=== PATIENT | female | born 1975 | race Caucasian/White ===

== ENCOUNTER 2019-12-18 21:45 | Emergency (ER) | payer BC, SELFPAY ==
--- OUTSIDE RECORDS SUMMARY | 2019-12-18 21:47 | XMS REPORT ---
:1975 [facility] Address [address] [place] [address] Care Team Providers Name Role Phone Unavailable Unavailable Unavailable Problems This patient has no known problems. Allergies, Adverse Reactions, Alerts This patient has no known allergies or adverse reactions. Medications This patient has no known medications. Results Test Description Test Time Test Comments Text Results Atomic Results Result Comments DIAG MAMM BILATERAL ARIN 2019-11-16 13:26:07 - DIAG MAMM BILATERAL ARIN CAD CAD DIGITAL DIGITALBILATERAL DIGITAL DIAGNOSTIC MAMMOGRAM 3D/2D WITH CAD: 11/16/2019CLINICAL: Palpable mass, right breast. Digital breast tomosynthesis was performed in addition to routine CC and MLO views. Current mammographic images were evaluated by either a [employer] M-Vu or a [employer] Image[employer] CAD (computer aided detection system). No prior exams were available for comparison. The tissue of both breasts has scattered fibroglandular background echotexture. A palpable marker is placed at the site of clinical area of concern, in the right upper outer quadrant, and no suspicious mammographic abnormality is identified. Multiple bilateral oval, circumscribed, low-density benign-appearing masses. No suspicious mass, architectural distortion, malignant type calcification, or lymph node abnormality detected. INCOMPLETE: ADDITIONAL IMAGING EVALUATION NEEDEDMammographic evidence of malignancy. Targeted right and bilateral survey ultrasound to follow.- BREAST ULTRASOUND BILATERALULTRASOUND OF BOTH BREASTS: 11/16/2019No prior exams were available for comparison. Color flow and real-time ultrasound of both breasts were performed. Greenfield scale images of the real-time examination were reviewed. The breast tissue has scattered fibroglandular background echotexture. Targeted right breast ultrasound, at the site of palpable area of concern at 12 o'clock, 8 cm from the nipple, demonstrates no suspicious sonographic abnormality. The rest of the bilateral survey ultrasound demonstrates scattered simple cysts correlating with the mammographic masses but no suspicious sonographic abnormality. No axillary lymphadenopathy was seen.IMPRESSION: BENIGN There is no sonographic evidence of malignancy. Resume annual screening mammography in one year. Clinical follow up is also recommended, and further management of palpable abnormalities should be based on clinical examination.Russel Hallman M.D. ss/:11/16/2019 13:26:07 Entry: - 11/24/2019 10:08:39Imaging Technologist: Carla JONES, [facility]-FWletter sent: BIRADS 1-2 Combo FU Letter Mammogram BI-RADS: 0 Incomplete: Additional Imaging Evaluation Needed Ultrasound BI-RADS: 2 Benign BREAST ULTRASOUND 2019-11-16 13:26:07 - DIAG MAMM BILATERAL ARIN CAD BILATERAL DIGITALBILATERAL DIGITAL DIAGNOSTIC MAMMOGRAM 3D/2D WITH CAD: 11/16/2019CLINICAL: Palpable mass, right breast. Digital breast tomosynthesis was performed in addition to routine CC and MLO views. Current mammographic images were evaluated by either a [employer] M-Vu or a [employer] CAD (computer aided detection system). No prior exams were available for comparison. The tissue of both breasts has scattered fibroglandular background echotexture. A palpable marker is placed at the site of clinical area of concern, in the right upper outer quadrant, and no suspicious mammographic abnormality is identified. Multiple bilateral oval, circumscribed, low-density benign-appearing masses. No suspicious mass, architectural distortion, malignant type calcification, or lymph node abnormality detected. INCOMPLETE: ADDITIONAL IMAGING EVALUATION NEEDEDMammographic evidence of malignancy. Targeted right and bilateral survey ultrasound to follow.- BREAST ULTRASOUND BILATERALULTRASOUND OF BOTH BREASTS: 11/16/2019No prior exams were available for comparison. Color flow and real-time ultrasound of both breasts were performed. Greenfield scale images of the real-time examination were reviewed. The breast tissue has scattered fibroglandular background echotexture. Targeted right breast ultrasound, at the site of palpable area of concern at 12 o'clock, 8 cm from the nipple, demonstrates no suspicious sonographic abnormality. The rest of the bilateral survey ultrasound demonstrates scattered simple cysts correlating with the mammographic masses but no suspicious sonographic abnormality. No axillary lymphadenopathy was seen.IMPRESSION: BENIGN There is no sonographic evidence of malignancy. Resume annual screening mammography in one year. Clinical follow up is also recommended, and further management of palpable abnormalities should be based on clinical examination.Russel Hallman M.D. ss/:11/16/2019 13:26:07 Entry: july - 11/24/2019 10:08:39Imaging Technologist: Carla JONES, [facility]-FWletter sent: BIRADS 1-2 Combo FU Letter Mammogram BI-RADS: 0 Incomplete: Additional Imaging Evaluation Needed Ultrasound BI-RADS: 2 Benign DIAG MAMM BILATERAL ARIN 2019-11-16 13:26:07 - DIAG MAMM BILATERAL ARIN CAD CAD DIGITAL DIGITALBILATERAL DIGITAL DIAGNOSTIC MAMMOGRAM 3D/2D WITH CAD: 11/16/2019CLINICAL: Palpable mass, right breast. Digital breast tomosynthesis was performed in addition to routine CC and MLO views. Current mammographic images were evaluated by either a [employer] M-Vu or a [employer] Image[employer] CAD (computer aided detection system). No prior exams were available for comparison. The tissue of both breasts has scattered fibroglandular background echotexture. A palpable marker is placed at the site of clinical area of concern, in the right upper outer quadrant, and no suspicious mammographic abnormality is identified. Multiple bilateral oval, circumscribed, low-density benign-appearing masses. No suspicious mass, architectural distortion, malignant type calcification, or lymph node abnormality detected. INCOMPLETE: ADDITIONAL IMAGING EVALUATION NEEDEDMammographic evidence of malignancy. Targeted right and bilateral survey ultrasound to follow.- BREAST ULTRASOUND BILATERALULTRASOUND OF BOTH BREASTS: 11/16/2019No prior exams were available for comparison. Color flow and real-time ultrasound of both breasts were performed. Greenfield scale images of the real-time examination were reviewed. The breast tissue has scattered fibroglandular background echotexture. Targeted right breast ultrasound, at the site of palpable area of concern at 12 o'clock, 8 cm from the nipple, demonstrates no suspicious sonographic abnormality. The rest of the bilateral survey ultrasound demonstrates scattered simple cysts correlating with the mammographic masses but no suspicious sonographic abnormality. No axillary lymphadenopathy was seen.IMPRESSION: BENIGN There is no sonographic evidence of malignancy. Resume annual screening mammography in one year. Clinical follow up is also recommended, and further management of palpable abnormalities should be based on clinical examination.Russel Hallman M.D. ss/:11/16/2019 13:26:07 Entry: lc - 11/24/2019 10:08:39Imaging Technologist: Carla JONES, [facility]-FWletter sent: BIRADS 1-2 Combo FU Letter Mammogram BI-RADS: 0 Incomplete: Additional Imaging Evaluation Needed Ultrasound BI-RADS: 2 Benign
[2019-12-18] MEDS ORDERED: ALBUTEROL 2.5 MG/3 ML NEB SOL ONE ×2 (22:28→23:49)
[2019-12-18] MEDS ORDERED: IPRATROPIUM BROM 0.5MG/2.5ML ONE (22:28)
[2019-12-18] MEDS ORDERED: METHYLPREDNISOLONE 125 MG INJ ONE (22:48)
[2019-12-18] MEDS ORDERED: Levofloxacin500mg IV 500 MG/100 ML BAG IV ONE (22:49)
[2019-12-18] MEDS ORDERED: NA CHLORIDE 0.9% 1,000 ML ONE (22:49)
[2019-12-18] MEDS ORDERED: predniSONE 20 MG TAB ONE (22:49)
[2019-12-18 23:12] LABS: Absolute Lymphocytes (CBC) 2.9 K/uL (0.7-4.9); Basophils % 1.1 % (0-1.3); Hematocrit 40.7 % (36.0-45.0); Lymphocytes % 41.1 % (15.3-44.8); MPV 11.3 fL (7.6-11.3); RBC Red Blood Cell Count 4.77 M/uL (3.86-4.86)
[2019-12-18 23:13] LABS: Protime INR 1.04
[2019-12-18 23:39] LABS: ALT/SGPT 81 U/L (12-78); AST/SGOT 56 U/L (15-37); Albumin 3.8 g/dL (3.4-5.0); Alkaline Phosphatase 93 U/L (45-117); BUN Blood Urea Nitrogen 7 mg/dL (7-18); Bicarbonate 31 mmol/L (21-32); Bilirubin Direct 0.1 mg/dL (0-0.2); Bilirubin Total 0.3 mg/dL (0.2-1.0); Glucose Level 158 mg/dL (74-106); NT PRO-BNP 63 pg/mL (<125); Potassium 2.8 mmol/L (3.5-5.1); Protein, Total 7.8 g/dL (6.4-8.2); Sodium Level 140 mmol/L (136-145); Troponin (Emerg Dept Use Only) < 0.02 ng/mL (0.0-0.045)
[2019-12-18] MEDS ORDERED: POTASSIUM 25 MEQ EFFERV TAB ONE (23:49)
--- NOTE | 2019-12-19 00:02 | ER ---
Nurse's Notes [facility] Name: Jennie Muhammad Age: 44 yrs Sex: Female : 1975 Arrival Date: 12/18/2019 Time: 21:47 Bed 20 Private MD: Diagnosis: Asthma;Dyspnea;Hypokalemia Presentation: 12/17 22:03 Chief complaint: Patient states: with history of COPD, have been using inhaler rv frequently because of SOB. started getting worse yesterday. denies any fever, nausea , or other symptoms. Coronavirus screen: Patient denies fever greater than 100.4F, cough, shortness of breath, or difficulty breathing. Proceed with normal triage process. Ebola Screen: No symptoms or risks identified at this time. Initial Sepsis Screen: Does the patient meet any 2 criteria?. Initial Sepsis Screen: Does the patient have a suspected source of infection? No. Patient's initial sepsis screen is negative. Risk Assessment: Do you want to hurt yourself or someone else? Patient reports no desire to harm self or others. 22:03 Method Of Arrival: Ambulatory rv 22:03 Acuity: HOOD 3 rv 22:11 Onset of symptoms was December 17, 2019 at 08:00. 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 - Social history:: Smoking status: Patient/guardian denies using tobacco, the patient reports quitting approximately 10 years ago. - Family history:: not pertinent. Screenin:10 Abuse screen: Denies threats or abuse. Denies injuries from another. Nutritional rv screening: No deficits noted. Tuberculosis screening: No symptoms or risk factors identified. Fall Risk None identified. Assessment: 22:09 General: Appears uncomfortable, Behavior is calm, cooperative. Pain: Denies pain. rv Neuro: Level of Consciousness is awake, alert, obeys commands, Oriented to person, place, time, situation. Cardiovascular: Patient's skin is warm and dry. Rhythm is regular. Respiratory: Respiratory effort is labored, Respiratory pattern is tachypnea Breath sounds are clear bilaterally. Derm: Skin is intact. 23:58 Reassessment: Patient appears in no apparent distress at this time. Patient and/or rv family updated on plan of care and expected duration. Pain level reassessed. Patient is alert, oriented x 3, equal unlabored respirations, skin warm/dry/pink. feeling better after the treatment. denies any pain at the moment. Respiratory: Respiratory effort is even, unlabored, Respiratory pattern is regular, Breath sounds are clear bilaterally. Vital Signs: 22:03 BP 139 / 82; Pulse 88; Resp 25; Temp 98.2; Pulse Ox 99% on R/A; Weight 113.4 kg; Height rv 5 ft. 10 in. (177.80 cm); Pain 0/10; 22:30 BP 124 / 91; Pulse 79; Resp 19; Pulse Ox 96% on Nebulizer Mask; rv 23:00 BP 118 / 73; Pulse 85; Resp 18; Pulse Ox 96% on Nebulizer Mask; rv 23:30 BP 113 / 70; Pulse 83; Resp 19; Pulse Ox 96% on R/A; rv 12/18 00:15 BP 135 / 73; Pulse 90; Resp 17; Pulse Ox 99% on Nebulizer Mask; rv 12/17 22:03 Body Mass Index 35.87 (113.40 kg, 177.80 cm) rv ED Course: 12/17 21:47 Patient arrived in ED. cl3 21:49 Aditya Amaya, STUART is Primary Nurse. rv 22:05 Vasyl Strong MD is Attending Physician. gopal 22:07 Triage completed. rv 22:09 Arm band placed on Patient placed in the treatment room, on a stretcher, Patient rv notified of wait time. 22:10 Patient has correct armband on for positive identification. Bed in low position. Call rv light in reach. Side rails up X 1. Pulse ox on. NIBP on. 22:45 Inserted saline lock: 20 gauge in right antecubital area, using aseptic technique. rv Blood collected. by YAZMIN SCHULER. 22:45 First set of blood cultures drawn GANGA TECH. rv 23:00 Second set of blood cultures drawn GANAG TECH. rv 12/18 00:00 Shon Gutierrez MD is Referral Physician. gopal 00:10 XRAY Chest (1 view) In Process Unspecified. EDMS 00:35 No provider procedures requiring assistance completed. IV discontinued, intact, rv bleeding controlled, No redness/swelling at site. Pressure dressing applied. Administered Medications: 12/17 22:27 Drug: Albuterol - atroVENT (3:1) (2.5 mg - 0.5 mg) 3 ml Route: Nebulizer; rv 12/18 00:38 Follow up: Response: Marked relief of symptoms rv 12/17 22:45 Drug: NS 0.9% 1000 ml Route: IV; Rate: 1 bolus; Site: right antecubital; rv 23:51 Follow up: IV Status: Completed infusion; IV Intake: 1000ml rv 22:45 Drug: SOLU-Medrol 125 mg Route: IVP; Site: right antecubital; rv 12/18 00:39 Follow up: Response: No adverse reaction rv 12/17 23:00 Drug: levofloxacin 500 mg Volume: 100 ml; Route: IVPB; Infused Over: 60 mins; Site: rv right antecubital; 12/18 00:37 Follow up: IV Status: Completed infusion; IV Intake: 150ml rv 12/17 23:25 Drug: predniSONE 60 mg Route: PO; rv 12/18 00:38 Follow up: Response: No adverse reaction rv 12/17 23:50 Drug: Albuterol 2.5 mg Route: Inhalation; rv 12/18 00:33 Follow up: Response: Marked relief of symptoms rv 12/17 23:51 Drug: Potassium Effervescent Tablet 50 mEq Route: PO; rv 12/18 00:33 Follow up: Response: No adverse reaction rv 00:15 Drug: Albuterol 5 mg Route: Inhalation; rv 00:34 Follow up: Response: Marked relief of symptoms rv 00:25 Drug: Potassium Effervescent Tablet 25 mEq Route: PO; rv 00:34 Follow up: Response: Medication administered at discharge. rv Intake: 12/17 23:51 IV: 1000ml; Total: 1000ml. rv 12/18 00:37 IV: 150ml; Total: 1150ml. rv Outcome: 00:00 Discharge ordered by . gopal 00:36 Discharged to home ambulatory. rv 00:36 Condition: good 00:36 Discharge instructions given to patient, Instructed on discharge instructions, follow up and referral plans. medication usage, Demonstrated understanding of instructions, follow-up care, medications, Prescriptions given X 3. 00:36 Patient left the ED. rv Signatures: Dispatcher [employer] EDVasyl Villaseñor MD MD cha Vicente, Ronaldo, RN RN rv Christopher Lawson cl3 Corrections: (The following items were deleted from the chart) 12/17 23:28 22:45 levofloxacin 500 mg 100 ml IVPB in right antecubital over 60 mins 100 ml rv rv
--- NOTE | 2019-12-19 00:02 | EDPHYS ---
Physician Documentation [facility] Name: Jennie Muhammad Age: 44 yrs Sex: Female : 1975 Arrival Date: 12/18/2019 Time: 21:47 Bed 20 Private MD: ED Physician Vasyl Strong HPI: 12/17 22:19 This 44 yrs old Female presents to ER via Ambulatory with complaints of Chest gopal Tightness. 22:19 The patient has shortness of breath at rest, with light activity. Onset: The gopal symptoms/episode began/occurred 2 day(s) ago. Duration: The symptoms are continuous, and are steadily getting worse. The patient's shortness of breath is aggravated by exertion, light activity, is alleviated by rest, sitting up, application of supplemental oxygen. The patient or guardian reports cough, that is intermittent, difficulty breathing. Modifying factors: The symptoms are alleviated by remaining still, the symptoms are aggravated by activity, lying flat. Associated signs and symptoms: The patient has no apparent associated signs or symptoms. Severity of symptoms: At their worst the symptoms were mild moderate in the emergency department the symptoms are unchanged. 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 - Social history:: Smoking status: Patient/guardian denies using tobacco, the patient reports quitting approximately 10 years ago. - Family history:: not pertinent. ROS: 22:19 Constitutional: Negative for fever, chills, and weight loss, Eyes: Negative for injury, gopal pain, redness, and discharge, ENT: Negative for injury, pain, and discharge, Neck: Negative for injury, pain, and swelling, Abdomen/GI: Negative for abdominal pain, nausea, vomiting, diarrhea, and constipation, Back: Negative for injury and pain, : Negative for injury, bleeding, discharge, and swelling, MS/Extremity: Negative for injury and deformity, Skin: Negative for injury, rash, and discoloration, Neuro: Negative for headache, weakness, numbness, tingling, and seizure, Psych: Negative for depression, anxiety, suicide ideation, homicidal ideation, and hallucinations, Allergy/Immunology: Negative for hives, rash, and allergies, Endocrine: Negative for neck swelling, polydipsia, polyuria, polyphagia, and marked weight changes, Hematologic/Lymphatic: Negative for swollen nodes, abnormal bleeding, and unusual bruising. 22:19 Cardiovascular: Positive for chest pain. 22:19 Respiratory: Positive for shortness of breath, at rest. Exam: 22:19 Constitutional: This is a well developed, well nourished patient who is awake, alert, gopal and in no acute distress. Head/Face: Normocephalic, atraumatic. Eyes: Pupils equal round and reactive to light, extra-ocular motions intact. Lids and lashes normal. Conjunctiva and sclera are non-icteric and not injected. Cornea within normal limits. Periorbital areas with no swelling, redness, or edema. ENT: Nares patent. No nasal discharge, no septal abnormalities noted. Tympanic membranes are normal and external auditory canals are clear. Oropharynx with no redness, swelling, or masses, exudates, or evidence of obstruction, uvula midline. Mucous membranes moist. Neck: Trachea midline, no thyromegaly or masses palpated, and no cervical lymphadenopathy. Supple, full range of motion without nuchal rigidity, or vertebral point tenderness. No Meningismus. Chest/axilla: Normal chest wall appearance and motion. Nontender with no deformity. No lesions are appreciated. Cardiovascular: Regular rate and rhythm with a normal S1 and S2. No gallops, murmurs, or rubs. Normal PMI, no JVD. No pulse deficits. Abdomen/GI: Soft, non-tender, with normal bowel sounds. No distension or tympany. No guarding or rebound. No evidence of tenderness throughout. Back: No spinal tenderness. No costovertebral tenderness. Full range of motion. Skin: Warm, dry with normal turgor. Normal color with no rashes, no lesions, and no evidence of cellulitis. MS/ Extremity: Pulses equal, no cyanosis. Neurovascular intact. Full, normal range of motion. Neuro: Awake and alert, GCS 15, oriented to person, place, time, and situation. Cranial nerves II-XII grossly intact. Motor strength 5/5 in all extremities. Sensory grossly intact. Cerebellar exam normal. Normal gait. Psych: Awake, alert, with orientation to person, place and time. Behavior, mood, and affect are within normal limits. 22:19 Respiratory: mild respiratory distress is noted, Respirations: labored breathing, that is mild, Breath sounds: decreased breath sounds, that are moderate, rhonchi, are not appreciated, wheezing: is not appreciated. Vital Signs: 22:03 BP 139 / 82; Pulse 88; Resp 25; Temp 98.2; Pulse Ox 99% on R/A; Weight 113.4 kg; Height rv 5 ft. 10 in. (177.80 cm); Pain 0/10; 22:30 BP 124 / 91; Pulse 79; Resp 19; Pulse Ox 96% on Nebulizer Mask; rv 23:00 BP 118 / 73; Pulse 85; Resp 18; Pulse Ox 96% on Nebulizer Mask; rv 23:30 BP 113 / 70; Pulse 83; Resp 19; Pulse Ox 96% on R/A; rv 12/18 00:15 BP 135 / 73; Pulse 90; Resp 17; Pulse Ox 99% on Nebulizer Mask; rv 12/17 22:03 Body Mass Index 35.87 (113.40 kg, 177.80 cm) rv MDM: 12/17 22:05 Patient medically screened. [facility] 22:26 Data reviewed: vital signs, nurses notes, lab test result(s), EKG, radiologic studies, gopal plain films. 12/17 23:04 Order name: Basic Metabolic Panel; Complete Time: 23:42 [facility] 12/17 23:04 Order name: Liver (Hepatic) Function; Complete Time: 23:42 [facility] 12/17 23:04 Order name: Troponin (Emerg Dept Use Only); Complete Time: 23:42 [facility] 12/17 23:04 Order name: NT PRO-BNP; Complete Time: 23:42 [facility] 12/17 23:04 Order name: Magnesium; Complete Time: 23:42 [facility] 12/17 22:17 Order name: XRAY Chest (1 view) [facility] 12/17 22:17 Order name: EKG; Complete Time: 23:09 [facility] 12/17 23:06 Order name: CBC with Automated Diff; Complete Time: 23:31 [facility] 12/17 23:06 Order name: Protime (+INR); Complete Time: 23:31 [facility] 12/17 23:06 Order name: Influenza Screen (A [facility] 12/17 23:06 Order name: Blood Culture [facility] 12/17 23:06 Order name: Blood Culture [facility] 12/17 22:17 Order name: Cardiac monitoring; Complete Time: 23:26 [facility] 12/17 22:17 Order name: EKG - Nurse/Tech; Complete Time: 23:26 [facility] 12/17 22:17 Order name: IV Saline Lock; Complete Time: 23: [facility] 12/17 22:17 Order name: Labs collected and sent; Complete Time: : [facility] 12/17 22:17 Order name: O2 Per Protocol; Complete Time: 23: [facility] 12/17 22:17 Order name: O2 Sat Monitoring; Complete Time: : [facility] 12/17 23:42 Order name: PO challenge: juice; Complete Time: 23:51 [facility] Administered Medications: 22:27 Drug: Albuterol - atroVENT (3:1) (2.5 mg - 0.5 mg) 3 ml Route: Nebulizer; rv 12/18 00:38 Follow up: Response: Marked relief of symptoms rv 12/17 22:45 Drug: NS 0.9% 1000 ml Route: IV; Rate: 1 bolus; Site: right antecubital; rv 23:51 Follow up: IV Status: Completed infusion; IV Intake: 1000ml rv 22:45 Drug: SOLU-Medrol 125 mg Route: IVP; Site: right antecubital; rv 12/18 00:39 Follow up: Response: No adverse reaction rv 12/17 23:00 Drug: levofloxacin 500 mg Volume: 100 ml; Route: IVPB; Infused Over: 60 mins; Site: rv right antecubital; 12/18 00:37 Follow up: IV Status: Completed infusion; IV Intake: 150ml rv 12/17 23:25 Drug: predniSONE 60 mg Route: PO; rv 12/18 00:38 Follow up: Response: No adverse reaction rv 12/17 23:50 Drug: Albuterol 2.5 mg Route: Inhalation; rv 12/18 00:33 Follow up: Response: Marked relief of symptoms rv 12/17 23:51 Drug: Potassium Effervescent Tablet 50 mEq Route: PO; rv 12/18 00:33 Follow up: Response: No adverse reaction rv 00:15 Drug: Albuterol 5 mg Route: Inhalation; rv 00:34 Follow up: Response: Marked relief of symptoms rv 00:25 Drug: Potassium Effervescent Tablet 25 mEq Route: PO; rv 00:34 Follow up: Response: Medication administered at discharge. rv Disposition: 12/19/19 00:00 Discharged to Home. Impression: Asthma, Dyspnea, Hypokalemia. - Condition is Stable. - Discharge Instructions: Asthma, Adult, Potassium Content of Foods, Shortness of Breath, Shortness of Breath, [id number], Asthma, Adult, [id number], Hypokalemia. - Prescriptions for Levaquin 500 mg Oral Tablet - take 1 tablet by ORAL route once daily for 7 days; 7 tablet. Albuterol Sulfate 2.5 mg /3 mL (0.083 %) Inhalation Solution for Nebulization - inhale 1 unit by NEBULIZATION route every 8 hours As needed; 1 box. Prednisone 20 mg Oral Tablet - take 2 tablet by ORAL route once daily for 5 days; 10 tablet. Albuterol Sulfate 90 mcg/actuation - inhale 1-2 puff by INHALATION route every 4-6 hours; 1 Inhaler. - Medication Reconciliation Form, Thank You Letter, Antibiotic Education, Prescription Opioid Use form. - Follow up: Private Physician; When: 2 - 3 days; Reason: Recheck today's complaints, Continuance of care, Re-evaluation by your physician. Follow up: Shon Gutierrez; When: 2 - 3 days; Reason: Recheck today's complaints, Continuance of care, Re-evaluation by your physician. - Problem is new. - Symptoms have improved. Signatures: Dispatcher [employer] Vasyl Doan MD MD cha Vicente, Ronaldo, RN RN rv Corrections: (The following items were deleted from the chart) 12/17 23:41 23:09 BASIC METABOLIC PANEL+C.LAB.BRZ ordered. EDMS EDMS 23:41 23:09 CBC+H.LAB.BRZ ordered. EDMS EDMS 23:41 23:09 HEPATIC FUNCTION+C.LAB.BRZ ordered. EDMS EDMS 23:41 23:09 MAGNESIUM+C.LAB.BRZ ordered. EDMS EDMS 23:41 23:09 PROBNP+C.LAB.BRZ ordered. EDMS EDMS 23:41 23:09 PROTIME (+INR)+COAG.LAB.BRZ ordered. EDMS EDMS : 23:09 TROPONIN (EMERG DEPT USE ONLY)+C.LAB.BRZ ordered. [facility] :41 23:09 BLOOD CULTURE*+BA.LAB.BRZ ordered. [facility] :41 23:09 Influenza Screen (A \T\ B)+BA.LAB.BRZ ordered. [facility] 12/18 00:36 00:00 12/19/2019 00:00 Discharged to Home. Impression: Asthma; Dyspnea; Hypokalemia. rv Condition is Stable. Discharge Instructions: Asthma, Adult, Shortness of Breath, Shortness of Breath, [id number], Asthma, Adult, [id number], Potassium Content of Foods, Hypokalemia. Prescriptions for Levaquin 500 mg Oral Tablet - take 1 tablet by ORAL route once daily for 7 days; 7 tablet, Albuterol Sulfate 2.5 mg /3 mL (0.083 %) Inhalation Solution for Nebulization - inhale 1 unit by NEBULIZATION route every 8 hours As needed; 1 box, Prednisone 20 mg Oral Tablet - take 2 tablet by ORAL route once daily for 5 days; 10 tablet, Albuterol Sulfate 90 mcg/actuation - inhale 1-2 puff by INHALATION route every 4-6 hours; 1 Inhaler. and Forms are Medication Reconciliation Form, Thank You Letter, Antibiotic Education, Prescription Opioid Use. Follow up: Private Physician; When: 2 - 3 days; Reason: Recheck today's complaints, Continuance of care, Re-evaluation by your physician. Follow up: Shon Gutierrez; When: 2 - 3 days; Reason: Recheck today's complaints, Continuance of care, Re-evaluation by your physician. Problem is new. Symptoms have improved. gopal
[2019-12-19 00:52] VITALS: TEMP 98.2
[2019-12-19 00:57] VITALS: BP 135/73; O2SAT 99
--- NOTE | 2019-12-19 05:55 | RAD REPORT ---
EXAM DESCRIPTION: [place] Single View12/19/2019 12:04 am CLINICAL HISTORY: sob COMPARISON: none FINDINGS: The lungs appear clear of acute infiltrate. The heart is normal size IMPRESSION: No acute abnormalities displayed
--- NOTE | 2019-12-19 10:57 | EKG ---
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
== END 2019-12-19 00:36 | disposition home or self-care (01) ==
LOC: ER 21:45
DX: J45.909 Unspecified asthma, uncomplicated (principal); E87.6 Hypokalemia; Z88.1 Allergy status to other antibiotic agents; Z88.8 Allergy status to other drugs, medicaments and biological substances
CPT/HCPCS: 36415; 71045; 80048; 80076; 83735; 83880; 84484; 85025; 85610; 87040; 87804; 93005; 94640; 96365; 96366; 96375; 99284; J2930; J7030; J7512

== ENCOUNTER 2023-05-21 14:54 | Emergency (ER) | payer OTHER ==
--- OUTSIDE RECORDS SUMMARY | 2023-05-21 14:58 | XMS REPORT | Continuity of Care Document ---
:1975 Author Organization [facility] t Address [address] [facility] [address] [place] [address] Care Team Providers Name Role Phone JASMIN HI Primary Care Physician Unavailable Gustavo CARDENAS, Twyla Morejon Attending Clinician TWYLA CHEN Attending Clinician Unavailable Payers Payer Name Policy Type Policy Number Effective Date Expiration Date S ource Problems Condition Condition Condition Status Onset Resolution Last Treating Co mments Source Name Details Category Date Date Treatment Clinician Date Unspecifie Unspecifi Problem Active 2017-06-25 Memoria d sleep ed sleep 02:00:06 l disturbanc disturbanc He rmmaxi e e Active Problem 06/25/2017 [facility] Allergic Allergic Problem Active 2017-06-25 Memoria rhinitis, rhinitis, 02:00:06 l cause cause Naga unspecifie unspecifie d d Active Problem 06/25/2017 [facility] Asthma, Asthma, Problem Active 2017-06-25 Me moria unspecifie unspecifie 02:00:06 l d, d, [place] unspecifie unspecifie d status d status Active Problem 06/25/2017 [facility] Edema Edema Problem Active 2017-06-25 Memor ia Active 02:00:06 l Problem Naga 06/25/2017 [facility] Obstructiv Obstructi Problem Active 2022-02-17 Memoria e sleep ve sleep 02:01:04 l apnea apnea [place] (adult) (adult) (pediatric (pediatric ) ) Active Problem 02/17/2022 [facility] Shortness Shortness Problem Active 2017-06-25 Memoria of breath of breath 02:00:06 l Active [place] Problem 06/25/2017 [facility] Chest Chest Problem Active 2022-02-17 Finesse chirstian pain, pain, 02:01:04 l unspecifie unspecifie He doretha chiang d Active Problem 02/17/2022 [facility] Palpitatio Palpitati Problem Active 2017-06-25 Memoria ns ons Active 02:00:06 l Problem [place] 06/25/2017 [facility] Asthma, Asthma, Problem Active 2017-06-25 Me moria unspecifie unspecifie 02:00:06 l d, with d, with Naga (acute) (acute) exacerbati exacerbati on on Active Problem 06/25/2017 [facility] Diabetes Diabetes Problem Active 2017-06-25 Memoria mellitus mellitus 02:00:06 l without without [place] mention of mention of complicati complicati on, type on, type II or II or unspecifie unspecifie d type, d type, not stated not stated as as uncontroll uncontroll ed ed Active Problem 06/25/2017 [facility] Raynaud's Raynaud's Problem Active 2017-06-25 Memoria syndrome syndrome 02:00:06 l Active Naga Problem 06/25/2017 [facility] Type 2 Type 2 Problem Active 2022-02-17 Finesse christian diabetes diabetes 02:01:04 l mellitus mellitus Waqas n without without complicati complicati ons ons Active Problem 02/17/2022 [facility] Other Other Problem Active 2022-02-17 Memor ia specified specified 02:01:04 l diabetes diabetes Waqas n mellitus mellitus with other with other specified specified complicati complicati on on Active Problem 02/17/2022 [facility] Gastro-eso Gastro-es Problem Active 2022-02-17 Memoria phageal ophageal 02:01:04 l reflux reflux [place] disease disease without without esophagiti esophagiti s s Active Problem 02/17/2022 [facility] Unspecifie Unspecifi Problem Active 2022-02-17 Memoria d asthma, ed asthma, 02:01:04 l uncomplica uncomplica He doretha bermudez Active Problem 02/17/2022 [facility] Unspecifie Unspecifi Problem Active 2022-02-17 Memoria d asthma ed asthma 02:01:04 l with with Naga (acute) (acute) exacerbati exacerbati on on Active Problem 02/17/2022 [facility] Gastropare Gastropar Problem Active 2017-06-25 Memoria sis esis 02:00:06 l Active [place] Problem 06/25/2017 [facility] Edema, Edema, Problem Active 2022-02-17 Finesse christian unspecifie unspecifie 02:01:04 l d d Active [place] Problem 02/17/2022 [facility] Esophageal Esophagea Problem Active 2017-06-25 Memoria reflux l reflux 02:00:06 l Active [place] Problem 06/25/2017 [facility] Sleep Sleep Problem Active 2022-02-17 Memor ia disorder, disorder, 02:01:04 l unspecifie unspecifie Edwin rmmaxi d d Active Problem 02/17/2022 [facility] Obesity, Obesity, Problem Active 2017-06-25 Memoria unspecifie unspecifie 02:00:06 l d d Active Naga Problem 06/25/2017 [facility] Chronic Chronic Problem Active 2022-02-17 Me moria obstructiv obstructiv 02:01:04 l e e Naga pulmonary pulmonary disease, disease, unspecifie unspecifie d d Active Problem 02/17/2022 [facility] Moderate Moderate Problem Active 2022-02-17 Memoria persistent persistent 02:01:04 l asthma, asthma, Naga uncomplica uncomplica lara bermudez Active Problem 02/17/2022 [facility] Cough, Cough, Problem Active 2022-02-17 Finesse chrisitan unspecifie unspecifie 02:01:04 l d d Active Naga Problem 02/17/2022 [facility] Restless Restless Problem Active 2022-02-17 Memoria legs legs 02:01:04 l syndrome syndrome Waqas n Active Problem 02/17/2022 [facility] Allergic Allergic Problem Active 2022-02-17 Memoria rhinitis, rhinitis, 02:01:04 l unspecifie unspecifie He doretha d d Active Problem 02/17/2022 [facility] Unspecifie Unspecifi Problem Active 2022-02-17 Memoria d ed 02:01:04 l diastolic diastolic Herm maxi (congestiv (congestiv e) heart e) heart failure failure Active Problem 02/17/2022 [facility] Allergies, Adverse Reactions, Alerts Allergy Allergy Status Severity Reaction(s) Onset Inactive Treating Comm ents Source Name Type Date Date Clinician Cefazoli Propensi Active Unknown - Uni vers n ty to See comments 5-30 ity of adverse 00:00: [place] reaction [facility] Omalizum Propensi Active Anaphylaxis U nivers ab ty to 5-30 ity of adverse 00:00: [place] reaction 00 [facility] Theophyl Propensi Active Rash Univer s line ty to 5-30 ity of Anhydrou adverse 00:00: [place] s reaction 00 [facility] s [facility] CEFAZOLI DRUG Active Unknown-Cmnt Un albina N INGREDI 5-30 ity of 00:00: [place] 00 [facility] OMALIZUM DRUG Active Anaphylaxis Uni vers AB INGREDI 5-30 ity of 00:00: [place] 00 [facility] THEOPHYL DRUG Active Rash Univers LINE INGREDI 5-30 ity of ANHYDROU 00:00: [place] S 00 Medical [facility] Social History Social Habit Start Date Stop Date Quantity Comments Source Gender identity [facility] Sexual orientation [facility] AlcoholScreenin2016-06-04 2016-06-04 Bella Nielson 00:00:00 00:00:00 Sex [birth year] [facility] 00:00:00 00:00:00 Medical Branch Smoking Status Start Date Stop Date Source Tobacco smoking consumption [facility] Branch Medications Ordered Filled Start Stop Current Ordering Indication Dosage Frequency Signature Comments Components Source Medication Medication Date Date Medication? Clinician (SIG) Name Name Lyrica Yes Kuldip 1 capsule Finesse christian 1-18 [place]es[place] l 03:00: Naga 50 Proventil Yes Kuldip inhale 2 Me moria HFA 1-18 [place] puffs by l 03:00: mouth [place]over 50 every 4 hours as needed for shortness of breath Novolin 0 Yes Kuldip as Memoria 70/30 1-18 [place] directed l 03:00: Naga 50 Trelegy 0 Yes Kuldip 1 puff Memori a Ellipta 1-14 [place]es[place] l 00:00: [place]aga 00 Ventolin 0 Yes Kuldip 1 puff as Me moria HFA 1-14 [place]es[place] needed l 00:00: Naga 00 Glimepiride 2019-09 Yes Kuldip 1 tablet Memoria 2-11 [place] with l 03:02: breakfast 12 or the first main meal of the day Albuterol 2019-09 Yes Kuldip 3 ml as Mem oria Sulfate 2-11 Kesavan needed l 03:02: 12 Rosuvastati 2019-09 Yes Kuldip 1 tablet Memoria n Calcium 2-11 Kesavan l 03:02: 12 Levaquin 2019-09 Yes Kuldip 1 tablet Mem oria 2-08 [place]es[place] l 00:00: Rosuvastati 2019-0 Yes Kuldip 1 tablet Memoria n Calcium 5-07 Kesavan l 02:02: Naga 40 Glimepiride 2019-0 Yes Kuldip 1 tablet Memoria 5-07 [place] with l 02:02: breakfast 40 or the first main meal of the day Albuterol-I Yes Kuldip 3 ml as M emoria pratropium 5-04 Kesavan needed l 00:00: Qvar Yes Kuldip as Memoria RediHaler 8-06 [place] directed l 00:00: Cefpodoxime 0 Yes Kuldip 1 tablet Memoria Proxetil 9-28 [place]es[place] l 00:00: Bevespi 2016-0 Yes Kuldip 2 puffs Memor ia Aerosphere 9-21 Kesavan l 00:00: [place] 00 Breo Yes Kuldip 1 puff Memoria Ellipta 9-18 Kesavan l 00:00: Vital Signs Vital Name Observation Time Observation Value Comments Source Systolic blood 2023-05-21 19:09:00 143 mm[Hg] Univer sity of pressure [facility] Diastolic blood 2023-05-21 19:09:00 94 mm[Hg] Unive rsity of pressure [facility] Heart rate 2023-05-21 19:09:00 87 /min Universi ty [facility] Body temperature 2023-05-21 19:09:00 36.61 Sol Univ ersity of [facility] Respiratory rate 2023-05-21 19:09:00 16 /[facility] Body height 2023-05-21 19:09:00 177.8 cm Universi ty [facility] Body weight 2023-05-21 19:09:[address] BMI 2023-05-21 19:09:00 35.87 kg/m2 [facility] Oxygen saturation in 2023-05-21 19:09:00 100 /min [facility] Arterial blood by [facility] Pulse oximetry Branch Weight 2013-12-03 16:00:00 Elver Nielson Temperature Oral (F) 2013-12-03 16:00:00 98.4 F [facility] Rate 2013-12-03 16:00:00 Elver Nielson Diastolic (mm Hg) 2013-12-03 16:00:00 [facility] samir Nielson Systolic (mm Hg) 2013-12-03 16:00:00 Finesse Nielson Procedures Procedure Date / Time Performed Performing Clinician [facility] e ASSIGNMENT OF BENEFITS 2023-05-21 19:19:32 Doctor Unassigned, No [facility] CONSENT/REFUSAL FOR 2023-05-21 19:02:00 Doctor Unassigned, No [facility] DIAGNOSIS AND [facility] Medical Branch TREATMENT Encounters Start End Encounter Admission Attending Care Care Encounter Source Date/Time Date/Time Type Type Clinicians Facility Department ID 2023-05-21 2023-05-21 Emergency Gustavo [facility] [id number] Univers 14:10:00 14:29:00 [id number] [id number] Medi olivia 084 Branch 2023-05-21 2023-05-21 Emergency X GUSTAVO NMREINA ERT [id number] Univers 14:10:00 14:29:00 TWYLA sepulveda [facility] 2022-02-15 2022-02-15 Outpatient Pulmonary Pulmonary [id number] eClinic 16:43:00 16:43:00 Crit Care [facility] & [facility] & [facility] 2021-12-22 2021-12-22 Outpatient Pulmonary Pulmonary [id number] eClinic 13:31:00 13:31:00 Crit Care Crit [facility] & [facility] & [facility] 2021-12-15 2021-12-15 Outpatient Pulmonary Pulmonary [id number] eClinic 17:11:00 17:11:00 Crit Care Crit Care & [facility]Works & [facility]y Mater PA [facility] PA 2021-10-06 2021-10-06 Outpatient Pulmonary Pulmonary [id number] eClinic 12:28:00 12:28:00 Crit Care Crit Care & [facility]Works & [facility]y [facility]ater PA [facility] 2020-09-02 2020-09-02 Outpatient Pulmonary Pulmonary [id number] eClinic 14:06:00 14:06:00 Crit Care Crit Care & [facility]Works & [facility]y Mater PA [facility] PA 2020-05-20 2020-05-20 Outpatient Pulmonary Pulmonary [id number] eClinic 11:39:00 11:39:00 Crit Care Crit [facility] & [facility] & [facility] PA [facility] PA 2020-02-25 2020-02-25 Outpatient Pulmonary Pulmonary [id number] eClinic 13:17:00 13:17:00 Crit Care Crit [facility] & [facility] & [facility] PA [facility] PA 2020-01-28 2020-01-28 Outpatient Pulmonary Pulmonary [id number] eClinic 16:59:00 16:59:00 Crit Care Crit [facility] & [facility]Works & [facility] PA 2020-01-25 2020-01-25 Outpatient Pulmonary Pulmonary [id number] eClinic 15:02:00 15:02:00 Crit Care Crit Care & [facility] & [facility] 2019-07-02 2019-07-02 Outpatient Pulmonary Pulmonary [id number] eClinic 13:52:00 13:52:00 Crit Care Crit Care & [facility]Works & [facility]y Mater PA [facility]ater PA 2019-06-06 2019-06-06 Outpatient Pulmonary Pulmonary [id number] eClinic 09:25:00 09:25:00 Crit Care Crit [facility] & [facility] & [facility] PA [facility]y [facility] PA 2019-01-29 2019-01-29 Outpatient Pulmonary Pulmonary [id number] eClinic 15:53:00 15:53:00 Crit Care Crit Care & [facility] & [facility]y [facility] PA [facility]y [facility]ater PA 2018-08-04 2018-08-04 Outpatient Pulmonary Pulmonary [id number] eClinic 15:22:00 15:22:00 Crit Care Crit Care & [facility]Works & [facility]y [facility] PA [facility]y [facility]ater PA 2018-05-01 2018-05-01 Outpatient Pulmonary Pulmonary [id number] eClinic 10:50:00 10:50:00 Crit Care Crit Care & [facility]Works & [facility]y Mater PA [facility]y Mater PA 2018-04-26 2018-04-26 Outpatient Pulmonary Pulmonary [id number] eClinic 09:58:00 09:58:00 Crit Care Crit Care & [facility] & [facility] PA [facility]y Mater PA 2017-10-19 2017-10-19 Outpatient Pulmonary Pulmonary [id number] eClinic 09:21:00 09:21:00 Crit Care Crit Care & [facility]Works & [facility]y [facility]ater PA [facility]y [facility]ater PA 2017-10-03 2017-10-03 Outpatient Pulmonary Pulmonary [id number] eClinic 16:53:00 16:53:00 Crit Care Crit Care & [facility]Works & Hosiery Mater PA [facility]iery Mater PA 2017-08-02 2017-08-02 Outpatient Pulmonary Pulmonary [id number] eClinic 09:48:00 09:48:00 Crit Care Crit Care & [facility]Works & [facility]y Mater PA [facility]y Mater PA 2017-06-23 2017-06-23 Outpatient Pulmonary Pulmonary [id number] eClinic 10:24:00 10:24:00 Crit Care Crit Care & [facility]Works & [facility]y Mater PA Hosiery Mater PA 2017-06-16 2017-06-16 Outpatient Pulmonary Pulmonary [id number] eClinic 14:17:00 14:17:00 Crit Care Crit Care & [facility]Works & [facility]y Mater PA [facility]iery Mater PA 2017-06-13 2017-06-13 Outpatient Pulmonary Pulmonary [id number] eClinic 13:37:00 13:37:00 Crit Care Crit Care & [facility]Works & [facility]y Mater PA [facility]iery Mater PA 2017-05-17 2017-05-17 Outpatient Pulmonary Pulmonary [id number] eClinic 16:02:00 16:02:00 Crit Care Crit Care & [facility]Works & [facility]iery Mater PA [facility]y [facility]ater PA 2016-07-05 2016-07-05 Unknown nullFlavo Pulmonary a06da7 c0-7 Memoria 21:29:00 21:29:00 r Critical 1q5-7b31-8 l Care and q32-c255lz Herm maxi [facility] 26af09 [facility] , [facility] 2016-07-05 2016-07-05 Outpatient Pulmonary Pulmonary [id number] eClinic 16:29:00 16:29:00 Critical Critical alWo rks Care and Care and Sleep [facility] ts[facility] , P.A. 2016-06-11 2016-06-11 Unknown nullFl[facility] Pulmonary 51f70f ca-3 Memoria 20:07:00 20:07:00 r Critical 90b-4dec-a l Care and 9ea-uf622z Herm maxi Sleep oj1329 [facility] , P[facility] 2016-06-11 2016-06-11 Unknown nullFlavo [facility]monary s4c294 ea-3 Memoria 20:07:00 20:07:00 r Critical 124-4e9d-8 l Care and 496-75d41d Herm maxi Sleep e82a05 [facility] , [facility] 2016-06-11 2016-06-11 Outpatient Pulmonary Pulmonary [id number] eClinic 15:07:00 15:07:00 Critical Critical alWo rks Care and Care and [facility] Sleep [facility] Specialists melecio, P.A. , P.A. 2015-12-24 2015-12-24 Unknown nullFl[facility] d82a86 79-9 Memoria 21:38:00 21:38:00 r Critical 68d-4aed-b l Care and 285-7dd0b0 Herm maxi Sleep jr541d [facility] , [facility] 2015-12-24 2015-12-24 Unknown nullFl[facility] Pul[facility] fed94c c8-b Memoria 21:38:00 21:38:00 r Critical 306-443f-a l Care and c98-e89pc5 Herm maxi Sleep 9bff72 [facility] , [facility] 2015-12-24 2015-12-24 Unknown nullFlavo [facility] q3m528 9d-8 Memoria 21:38:00 21:38:00 r Critical da7-49a1-8 l Care and 4b9-31u454 Herm maxi Sleep 6c8f2f [facility] , P.A[facility] 2015-12-24 2015-12-24 Outpatient Pulmonary Pulmonary [id number] eClinic 16:38:00 16:38:00 Critical Critical alWo rks Care and Care and Sleep Sleep Specialis Specialists melecio, P.A. , P.A. 2015-11-28 2015-11-28 Unknown nullFlavo [facility]monary 13ed33 8f-c Memoria 22:42:00 22:42:00 r Critical bf8-4301-8 l Care and 60e-bb76ed Herm maxi Sleep 94dd51 [facility] , P[facility] 2015-11-28 2015-11-28 Unknown nullFlavo [facility]monary 2066ee ef-e Memoria 21:42:00 21:42:00 r Critical ead-4d65-a l Care and 555-376bd7 Herm maxi Sleep c77053 [facility] , [facility] 2015-11-28 2015-11-28 Unknown nullFlavo [facility]monary 76bfb3 b7-c Memoria 21:42:00 21:42:00 r Critical i71-8134-l l Care and r2a-h0f313 Herm maxi Sleep b96c86 [facility] , P[facility] 2015-11-28 2015-11-28 Unknown nullFlavo [facility] 041d6a 5a-3 Memoria 21:42:00 21:42:00 r Critical 0n4-7ko2-1 l Care and 111-36d5d1 Herm [facility]i Sleep f9ebc1 [facility] , [facility] 2015-11-28 2015-11-28 Outpatient Pulmonary Pulmonary [id number] eClinic 16:42:00 16:42:00 Critical Critical alWo rks Care and Care and Sleep Sleep [facility] ts, P[facility]. , P.A. 2015-05-13 2015-05-13 Unknown [facility] 7487c4 8a-1 Memoria 14:17:00 14:17:00 r Critical 0f6-039z-0 l Care and 65c-d3feb7 Herm maxi Sleep 59442i [facility] , P[facility] 2015-05-13 2015-05-13 Unknown nullFl[facility] 0bebdf e2-7 Memoria 13:17:00 13:17:00 r Critical 7eb-4dde-8 l Care and 4ae-973d13 Herm [facility]i Sleep df7e40 [facility] , P[facility] 2015-05-13 2015-05-13 Unknown nullFl[facility] 0ef4e2 98-3 Memoria 13:17:00 13:17:00 r Critical t7g-45x6-u l Care and cd1-833374 Herm [facility]i Sleep 15367d [facility] , [facility] 2015-05-13 2015-05-13 Unknown nullFl[facility] ed0bb0 88-5 Memoria 13:17:00 13:17:00 r Critical 902-41bd-b l Care and bfd-bdc0ad Herm maxi Sleep 657957 [facility] 2015-05-13 2015-05-13 Unknown [facility] d3faf1 9c-4 Memoria 13:17:00 13:17:00 r Critical 84d-424d-a l Care and 7b9-y9694e Herm [facility] d0b82b [facility] , P[facility] 2015-05-13 2015-05-13 Outpatient Pulmonary Pulmonary [id number] eClinic 08:17:00 08:17:00 Critical Critical alWo rks Care and Care and Sleep Sleep [facility] ts, [facility] , P.A. 2015-03-04 2015-03-04 Unknown [facility] [id number] 21-7 Memoria 19:27:00 19:27:00 r Critical 82a-41f9-8 l Care and 0x6-69u595 Herm maxi Sleep 379e94 [facility] , [facility] 2015-03-04 2015-03-04 Unknown null[facility] l12035 ce-1 Memoria 18:27:00 18:27:00 r Critical l87-6668-0 l Care and 01a-2u8558 Herm max[facility] b55b57 [facility] , [facility] 2015-03-04 2015-03-04 Unknown null[facility] 001eb3 36-e Memoria 18:27:00 18:27:00 r Critical 806-47c8-a l Care and 8cb-60b7b5 Herm maxi Sleep h8j374 [facility] , P.[facility] 2015-03-04 2015-03-04 Unknown null[facility] 088651 d3-e Memoria 18:27:00 18:27:00 r Critical 50c-42d7-9 l Care and 26e-117902 Herm maxi Sleep 8aef63 [facility] , P.[facility] 2015-03-04 2015-03-04 Unknown nullFl[facility] 1cbbce 1a-4 Memoria 18:27:00 18:27:00 r Critical 9d6-3404-6 l Care and m86-3c3050 Herm [facility] d89b94 [facility] , [facility] 2015-03-04 2015-03-04 Unknown [facility] 35q954 82-0 Memoria 18:27:00 18:27:00 r Critical 2be-4a82-b l Care and bd3-dbcc78 Herm [facility] 9050e0 [facility] , [facility] 2015-03-04 2015-03-04 Outpatient Pulmonary Pulmonary [id number] eClinic 13:27:00 13:27:00 Critical Critical alWo rks Care and Care and Sleep Sleep [facility] , P.A. 2014-12-20 2014-12-20 Unknown [facility] fb12f8 e2-7 Memoria 17:45:00 17:45:00 r Critical 6m7-4m9i-7 l Care and cf8-fdf5a1 [facility] cbdce3 [facility] 2014-12-20 2014-12-20 Unknown null[facility] 93363h 25-2 Memoria 16:45:00 16:45:00 r Critical dad-4fb9-8 l Care and 28f-6932ba Herm [facility] 15fb04 [facility] 2014-12-20 2014-12-20 Unknown [facility] 5572d9 8a-2 Memoria 16:45:00 16:45:00 r Critical fcf-434e-8 l Care and 41e-0b96db [facility] e867b7 [facility] 2014-12-20 2014-12-20 Unknown [facility] b008de 6c-7 Memoria 16:45:00 16:45:00 r Critical t05-48o3-t l Care and 421-3aec76 Herm [facility] 832afd [facility] 2014-12-20 2014-12-20 Unknown [facility] 28f2f0 70-5 Memoria 16:45:00 16:45:00 r Critical q04-8444-t l Care and ad6-1a4762 [facility] b8eef7 [facility] 2014-12-20 2014-12-20 Unknown [facility] f9f25a ff-e Memoria 16:45:00 16:45:00 r Critical o32-53x7-e l Care and q03-xx41s3 Herm [facility] Sleep 432ed0 [facility] , [facility] 2014-12-20 2014-12-20 Unknown [facility] cb5ce0 26-6 Memoria 16:45:00 16:45:00 r Critical aef-439b-8 l Care and 5t1-qotx10 Herm [facility] 15acbc [facility] 2014-12-20 2014-12-20 Outpatient Pulmonary Pulmonary [id number] eClinic 11:45:00 11:45:00 Critical Critical alWo rks Care and Care and Sleep Sleep Specialis [facility] ts[facility] , P.A. 2014-12-11 2014-12-11 Unknown [facility] dsh761 a5-c Memoria 20:19:00 20:19:00 r Critical 501-40ba-9 l Care and l7y-97a8lz [facility] e3da90 [facility] 2014-12-11 2014-12-11 Unknown null[facility] 7021a9 c3-b Memoria 19:19:00 19:19:00 r Critical r8v-4c4a-4 l Care and 3ef-71n238 [facility] a2286x [facility] 2014-12-11 2014-12-11 Unknown [facility] 6lf149 04-c Memoria 19:19:00 19:19:00 r Critical 733-4d89-8 l Care and u8y-80e4d6 [facility] cca50e [facility] 2014-12-11 2014-12-11 Unknown [facility] b1a4cf 66-b Memoria 19:19:00 19:19:00 r Critical 157-41ae-b l Care and 7o9-psk075 [facility] 1fb2ff [facility] 2014-12-11 2014-12-11 Unknown [facility] 83t405 e7-c Memoria 19:19:00 19:19:00 r Critical 3ec-44e5-8 l Care and patrick-36z723 [facility] k52522 [facility] 2014-12-11 2014-12-11 Unknown [facility] 1f9e2e b9-a Memoria 19:19:00 19:19:00 r Critical 2ed-4873-b l Care and 567-e42f95 Herm amxi Sleep 6ddc82 [facility] , [facility] 2014-12-11 2014-12-11 Unknown [facility] 7ca05e 5b-e Memoria 19:19:00 19:19:00 r Critical 6fd-4a78-8 l Care and s42-o11256 [facility] b391b4 [facility] 2014-12-05 2014-12-05 Unknown [facility] ae75b8 e3-8 Memoria 16:58:00 16:58:00 r Critical 9j1-3su4-l l Care and y3x-jq201k [facility] 0s6787 [facility] 2014-12-05 2014-12-05 Unknown [facility] 0wq898 e1-7 Memoria 15:58:00 15:58:00 r Critical 457-46f0-8 l Care and fb0-98261v [facility] fcc18f [facility] 2014-12-05 2014-12-05 Unknown [facility] 98bf48 18-6 Memoria 15:58:00 15:58:00 r Critical 80a-4ae3-b l Care and 2k3-28q67z [facility] 9122c0 [facility] 2014-12-05 2014-12-05 Unknown [facility] 167069 de-1 Memoria 15:58:00 15:58:00 r Critical 16a-4f0d-8 l Care and 578-42deae [facility] 8e38f7 [facility] , [facility] 2014-12-05 2014-12-05 Unknown [facility] 4cc0ca f9-7 Memoria 15:58:00 15:58:00 r Critical ec8-4d7e-8 l Care and 658-122071 [facility] 110bd4 [facility] 2014-12-05 2014-12-05 Unknown [facility] 94a94a bb-8 Memoria 15:58:00 15:58:00 r Critical 0p4-9hq9-e l Care and fd0-e3b2cf [facility] 19dc14 [facility] 2014-12-05 2014-12-05 Unknown [facility] 390427 da-9 Memoria 15:58:00 15:58:00 r Critical 94f-4454-b l Care and 4ef-6241b5 [facility] 1c93ea [facility] 2014-11-25 2014-11-25 Unknown [facility] 91cb56 0c-2 Memoria 17:24:00 17:24:00 r Critical w5o-7u2z-e l Care and 8e2-30a6r2 [facility] e052d1 [facility] 2014-11-25 2014-11-25 Unknown [facility] pe964h de-4 Memoria 16:24:00 16:24:00 r Critical 983-4233-a l Care and t53-x12317 [facility] 2f9ac2 [facility] 2014-11-25 2014-11-25 Unknown [facility] 56269w 5f-e Memoria 16:24:00 16:24:00 r Critical 687-45d4-8 l Care and 472-e048d4 [facility] c4c4aa [facility] 2014-11-25 2014-11-25 Unknown [facility] f84a5d 03-e Memoria 16:24:00 16:24:00 r Critical 1h8-4595-d l Care and 5m0-94f36l [facility] 964142 [facility] 2014-11-25 2014-11-25 Unknown [facility] 94204v 05-3 Memoria 16:24:00 16:24:00 r Critical n33-2bw9-o l Care and ef5-j6584w [facility] 331888 [facility] 2014-11-25 2014-11-25 Unknown [facility] m80840 b9-6 Memoria 16:24:00 16:24:00 r Critical 988-49cb-a l Care and 5t2-lq26v3 [facility] 1f4e86 [facility] 2014-11-25 2014-11-25 Unknown [facility] 458ed4 a1-6 Memoria 16:24:00 16:24:00 r Critical af9-4330-b l Care and 627-e28f69 [facility] [id number] 2014-10-23 2014-10-23 test [facility] [id number] d4-7 [facility] 20:10:00 20:10:00 r Critical [id number]-g l Care and [id number] [facility] [id number] [facility] 2014-10-23 2014-10-23 test [facility] [id number] 55-5 [facility] 20:10:00 20:10:00 r Critical [id number] l Care and [id number] [facility] [id number] [facility] 2014-10-23 2014-10-23 test [facility] [id number] 3d-3 [facility] 19:10:00 19:10:00 r Critical [id number] l Care and [id number] [facility] [facility] 2014-10-23 2014-10-23 test [facility] 374e4c 6c-7 [facility]oria 19:10:00 19:10:00 r Critical 241-435b-8 l Care and ef3-c50818 [facility] 204e06 [facility] 2014-10-23 2014-10-23 test [facility] 05630c 9a-7 [facility] 19:10:00 19:10:00 r Critical 50f-4ed2-8 l Care and 187-be2ab3 [facility] [id number] [facility] 2014-10-23 2014-10-23 test [facility] h6l304 4a-7 [facility] 19:10:00 19:10:00 r Critical 5fe-41f9-b l Care and 853-f7bd41 [facility] 29da15 [facility] 2014-10-23 2014-10-23 test [facility] 68b6fc af-d [facility] 19:10:00 19:10:00 r Critical 0s5-1qnr-j l Care and 00f-12h397 [facility] ace7af [facility] 2014-10-23 2014-10-23 test [facility] b5i107 ac-e [facility]oria 19:10:00 19:10:00 r Critical 7s3-1s5n-c l Care and d42-1q3p0d [facility] cd6d7e [facility] 2014-10-23 2014-10-23 Outpatient Pul[facility] Pulmonary 593 25 eClinic 14:10:00 14:10:00 Critical Critical alWo rks Care and Care and [facility] 2014-10-07 2014-10-07 Unknown [facility] f80360 e2-3 [facility]oria 19:44:00 19:44:00 r Critical 989-4f79-9 l Care and fdf-7cb6ea [facility] 42w918 [facility] 2014-10-07 2014-10-07 Unknown [facility] 16bf41 a6-3 [facility] 19:44:00 19:44:00 r Critical d9t-8693-i l Care and 725-d70b19 [facility] d7c44a [facility] 2014-10-07 2014-10-07 Unknown [facility] i77426 59-f [facility] 19:44:00 19:44:00 r Critical f2r-3m6m-g l Care and 16c-67cc15 [facility] 56ea41 [facility] 2014-10-07 2014-10-07 Unknown [facility] d559ab a9-7 [facility] 18:44:00 18:44:00 r Critical 53a-4db0-b l Care and 8g2-tq6p89 [facility] 5d2e11 [facility] 2014-10-07 2014-10-07 [facility] 1fbd2e b2-6 [facility] 18:44:00 18:44:00 r Critical 505-4419-a l Care and 824-163469 [facility] 2864e9 [facility] 2014-10-07 2014-10-07 Unknown [facility] 4wt244 7c-d [facility] 18:44:00 18:44:00 r Critical 9ae-4ca0-b l Care and ea9-nut353 [facility] 6145e7 [facility] 2014-10-07 2014-10-07 Unknown [facility] dx8955 24-1 [facility] 18:44:00 18:44:00 r Critical 08f-415d-9 l Care and 839-56e9a8 [facility] b62e47 [facility] 2014-10-07 2014-10-07 Unknown [facility] 7b2dbd 9b-3 [facility] 18:44:00 18:44:00 r Critical 00e-4cb2-9 l Care and 64b-332241 [facility] 068eb8 [facility] 2014-10-07 2014-10-07 Unknown [facility] f4fb0b 56-6 [facility] 18:44:00 18:44:00 r Critical 9af-4e47-a l Care and 91d-q5564k [facility] 9fbffa [facility] 2014-10-07 2014-10-07 Outpatient Pulmonary Pulmonary 587 35 eClinic 13:44:00 13:44:00 Critical Critical alWo rks Care and Care and [facility] 2014-09-25 2014-09-25 Unknown [facility] ada1db 60-b [facility] 19:26:00 19:26:00 r Critical 356-4a21-a l Care and 92b-afb0ab [facility] bc2ecd [facility] 2014-09-25 2014-09-25 Unknown [facility] 13w602 c1-a [facility] 19:26:00 19:26:00 r Critical 571-403d-9 l Care and i82-d36gf3 [facility] 66d657 [facility] 2014-09-25 2014-09-25 Unknown [facility] k98595 44-5 [facility] 19:26:00 19:26:00 r Critical 631-4835-8 l Care and 8r1-697d12 [facility] 418[facility] 2014-09-25 2014-09-25 Unknown [facility] c7ba2a e4-b [facility] 19:26:00 19:26:00 r Critical 078-4ceb-b l Care and k40-5t182g [facility] 90abad [facility] 2014-09-25 2014-09-25 Unknown [facility] 21a4a1 e9-3 [facility]oria 18:26:00 18:26:00 r Critical b3n-68w6-l l Care and 0bf-k8224m [facility] l13105 [facility] 2014-09-25 2014-09-25 Unknown [facility] 588bc1 22-0 [facility]oria 18:26:00 18:26:00 r Critical 97d-4e2f-b l Care and 85d-25b2de [facility] b257e3 [facility] 2014-09-25 2014-09-25 Unknown [facility] 34t483 0a-7 [facility] 18:26:00 18:26:00 r Critical 660-4ebe-9 l Care and 960-385ee4 [facility] 5t6823 [facility] 2014-09-25 2014-09-25 Unknown [facility] 96d35a a1-6 [facility] 18:26:00 18:26:00 r Critical 202-464e-a l Care and n70-5q811n [facility] 9y337y [facility] 2014-09-25 2014-09-25 Unknown [facility] b86ec0 31-7 [facility] 18:26:00 18:26:00 r Critical 699-4fc6-9 l Care and i07-3t09r1 [facility] x65789 [facility] 2014-09-25 2014-09-25 Unknown [facility] abce3c 46-6 [facility] 18:26:00 18:26:00 r Critical 909-43cd-8 l Care and 343-7948b5 [facility] g20954 [facility] 2014-09-25 2014-09-25 Outpatient Pulmonary Pulmonary 584 10 eClinic 13:26:00 13:26:00 Critical Critical alWo rks Care and Care and [facility] 2014-07-25 2014-07-25 Unknown [facility] p04960 04-2 [facility] 15:09:00 15:09:00 r Critical 9dc-4210-a l Care and 55e-7e3e08 [facility] 16a1c7 [facility] 2014-07-25 2014-07-25 Unknown [facility] df1a8e cc-b [facility] 15:09:00 15:09:00 r Critical 0dc-4403-8 l Care and h67-q2929l [facility] 2f85a8 [facility] 2014-07-25 2014-07-25 Unknown [facility] d0bf1d 48-9 [facility] 15:09:00 15:09:00 r Critical e0m-458p-7 l Care and ff3-y4811j [facility] f819f7 [facility] 2014-07-25 2014-07-25 Unknown [facility] 42d1b1 0d-b [facility] 15:09:00 15:09:00 r Critical 1u2-8197-0 l Care and w6b-5f8652 [facility] 963a81 [facility] 2014-07-25 2014-07-25 Unknown [facility] 000df4 76-6 [facility] 15:09:00 15:09:00 r Critical l82-8vfx-4 l Care and 1be-7c7a3b [facility] 2181df [facility] 2014-07-25 2014-07-25 Unknown [facility] e1366x 77-f [facility] 14:09:00 14:09:00 r Critical 8m9-6cds-0 l Care and df6-4c249c [facility] 036[facility] 2014-07-25 2014-07-25 Unknown [facility] 63s356 d1-3 [facility] 14:09:00 14:09:00 r Critical 902-47f9-9 l Care and 95e-3f6d04 [facility] d2a74f [facility] 2014-07-25 2014-07-25 Unknown [facility] 60y394 b8-4 [facility] 14:09:00 14:09:00 r Critical 1a7-2yw4-p l Care and 5o0-q1yn16 [facility] 8uj076 [facility] 2014-07-25 2014-07-25 Unknown [facility] 36i184 bf-8 [facility] 14:09:00 14:09:00 r Critical s9e-2r17-c l Care and fb2-15cfcf [facility] ca30e1 [facility] 2014-07-25 2014-07-25 Unknown [facility] 321727 95-6 [facility] 14:09:00 14:09:00 r Critical n75-409p-y l Care and q42-0zh9c3 [facility] ada47b [facility] 2014-07-25 2014-07-25 Unknown [facility] 78p406 f1-b [facility] 14:09:00 14:09:00 r Critical 8b5-3c57-d l Care and a8e-95l33x [facility] 3342f3 [facility] 2014-07-25 2014-07-25 Outpatient Pulmonary Pulmonary 567 31 eClinic 09:09:00 09:09:00 Critical Critical alWo rks Care and Care and [facility] 2014-05-09 2014-05-09 Unknown [facility] e496d9 d2-1 [facility] 17:27:00 17:27:00 r Critical 18b-47b8-8 l Care and a6s-10794p [facility] 0add37 [facility] 2014-05-09 2014-05-09 Unknown [facility] 13b96a a8-7 [facility] 17:27:00 17:27:00 r Critical 6g0-8ql6-4 l Care and 2z0-8j1o49 [facility] 29a26d [facility] 2014-05-09 2014-05-09 Unknown [facility] 22s337 a8-0 [facility] 17:27:00 17:27:00 r Critical 528-4920-a l Care and 17d-0l745f [facility] c47c3f [facility] 2014-05-09 2014-05-09 Unknown [facility] 1eaaea 6f-f [facility] 17:27:00 17:27:00 r Critical 678-4bf0-b l Care and bb8-a93af4 [facility] fcf7a8 [facility] 2014-05-09 2014-05-09 Unknown [facility] 9102dc 4b-b [facility] 17:27:00 17:27:00 r Critical 5aa-4df5-b l Care and 3m3-r62331 [facility] a229c1 [facility] 2014-05-09 2014-05-09 Unknown [facility] 88bc80 5d-b [facility] 17:27:00 17:27:00 r Critical 049-4c42-b l Care and 328-56m690 [facility] 987[facility] 2014-05-09 2014-05-09 Unknown [facility] c61072 1e-0 [facility]oria 16:27:00 16:27:00 r Critical 083-490d-9 l Care and 1c6-ety24d [facility] ecfc2a [facility] 2014-05-09 2014-05-09 Unknown [facility] f96d84 d5-6 [facility] 16:27:00 16:27:00 r Critical 3n0-897z-f l Care and 80d-6h7780 [facility] 63994[facility] 2014-05-09 2014-05-09 Unknown [facility] 76ff57 04-c [facility] 16:27:00 16:27:00 r Critical ec7-4b00-b l Care and 671-6efaef [facility] 6acd29 [facility] 2014-05-09 2014-05-09 Unknown [facility] 3f1b32 e4-1 [facility]oria 16:27:00 16:27:00 r Critical 515-4eb3-9 l Care and 1fb-e1e25a [facility] afd71a [facility] 2014-05-09 2014-05-09 Unknown [facility] 2fdcbf c8-f [facility] 16:27:00 16:27:00 r Critical 016-444e-9 l Care and 185-7debe7 [facility] ct015u [facility] 2014-05-09 2014-05-09 Unknown [facility] w5p690 94-f [facility] 16:27:00 16:27:00 r Critical 636-42cf-8 l Care and 9de-c6ad4a [facility] 701aab [facility] 2014-05-09 2014-05-09 Outpatient Pulmonary Pulmonary 544 08 eClinic 11:27:00 11:27:00 Critical Critical alWo rks Care and Care and [facility] 2013-12-31 2013-12-31 Unknown [facility] ed7f50 b6-7 Memoria 17:14:00 17:14:00 r Critical j87-2i5i-y l Care and 3h1-70d54q [facility] 12b0d5 [facility] 2013-12-31 2013-12-31 Unknown [facility] 642f06 5a-f Memoria 17:14:00 17:14:00 r Critical acf-4581-a l Care and eaa-ae9aa6 [facility] 6l7063 [facility] 2013-12-31 2013-12-31 Unknown [facility] 8f2a3d 9e-5 Memoria 17:14:00 17:14:00 r Critical 4de-47d4-a l Care and l68-1d8568 [facility] jg097x [facility] 2013-12-31 2013-12-31 Unknown [facility] f6f22f 5e-8 Memoria 17:14:00 17:14:00 r Critical 12a-490d-9 l Care and 1c7-3d6628 [facility] 89d1f8 [facility] 2013-12-31 2013-12-31 Unknown [facility] dfbc11 7b-a [facility] 17:14:00 17:14:00 r Critical 555-4089-b l Care and h83-89xw43 [facility] 54ba9e [facility] 2013-12-31 2013-12-31 Unknown [facility] bfae79 fd-d [facility]oria 17:14:00 17:14:00 r Critical 745-4306-9 l Care and k0n-6259w3 [facility] 512d8d [facility] 2013-12-31 2013-12-31 Unknown [facility] 6p303b 68-4 Memoria 16:14:00 16:14:00 r Critical v2k-8lmn-c l Care and z66-599433 [facility] i93868 [facility] 2013-12-31 2013-12-31 Unknown [facility] b589b4 09-5 Memoria 16:14:00 16:14:00 r Critical 990-40f9-b l Care and 604-e71efd [facility] bcac5f [facility] 2013-12-31 2013-12-31 Unknown [facility] d25d82 0c-d [facility]oria 16:14:00 16:14:00 r Critical n35-00i6-w l Care and c5b-1u8193 [facility] 96f3a1 [facility] 2013-12-31 2013-12-31 Unknown [facility] a3eece 4b-d [facility]oria 16:14:00 16:14:00 r Critical j2h-653k-4 l Care and bc1-1j5573 [facility] 1a8fa4 [facility] 2013-12-31 2013-12-31 Unknown [facility] 6cea07 90-8 Memoria 16:14:00 16:14:00 r Critical 9db-4a81-a l Care and 103-a2c56c [facility] 6l8445 [facility] 2013-12-31 2013-12-31 Unknown [facility] 964182 5a-e Memoria 16:14:00 16:14:00 r Critical y14-200b-u l Care and 5k6-0901dl [facility] 7j468h [facility] 2013-12-31 2013-12-31 Unknown [facility] q0q817 ae-1 [facility]oria 16:14:00 16:14:00 r Critical 13b-44f9-b l Care and j20-5x6mfc [facility] fce70c [facility] 2013-12-31 2013-12-31 Outpatient Pulmonary Pulmonary 509 78 eClinic 11:14:00 11:14:00 Critical Critical alWo rks Care and Care and [facility] Results Test Description Test Time Test Comments Results Result [facility] e Comments DIAG MAMM 2019-11-16 - DIAG MAMM BILATERAL BILATERAL ARIN 13:26:07 ARIN CAD CAD DIGITAL DIGITALBILATERAL DIGITAL DIAGNOSTIC MAMMOGRAM 3D/2D WITH CAD: 11/16/2019CLINICAL: Palpable mass, right breast. Digital breast tomosynthesis was performed in addition to routine CC and MLO views. Current mammographic images were evaluated by either a [employer]y M-Vu or a [employer] ImageChecker CAD (computer aided detection system). No [...] - 11/24/2019 10:08:39Imaging Technologist: Carla JONES, [facility]-FWletter sent: BIRADS 1-2 Combo FU Letter Mammogram BI-RADS: 0 Incomplete: Additional Imaging Evaluation Needed Ultrasound BI-RADS: 2 Benign BREAST ULTRASOUND 2019-11-16 - DIAG MAMM BILATERAL BILATERAL 13:26:07 ARIN CAD DIGITALBILATERAL DIGITAL DIAGNOSTIC MAMMOGRAM 3D/2D WITH CAD: 11/16/2019CLINICAL: Palpable mass, right breast. Digital breast tomosynthesis was performed in addition to routine CC and MLO views. Current mammographic images were evaluated by either a Kaznachey M-Vu or a Gro[employer]io ImageChecker CAD (computer aided detection system). No [...] - 11/24/2019 10:08:39Imaging Technologist: Carla JONES, [facility]-FWletter sent: BIRADS 1-2 Combo FU Letter Mammogram BI-RADS: 0 Incomplete: Additional Imaging Evaluation Needed Ultrasound BI-RADS: 2 Benign DIAG MAMM 2019-11-16 - DIAG MAMM BILATERAL BILATERAL ARIN 13:26:07 ARIN CAD CAD DIGITAL DIGITALBILATERAL DIGITAL DIAGNOSTIC MAMMOGRAM 3D/2D WITH CAD: 11/16/2019CLINICAL: Palpable mass, right breast. Digital breast tomosynthesis was performed in addition to routine CC and MLO views. Current mammographic images were evaluated by either a Kaznachey M-Vu or a Grocio ImageChecker CAD (computer aided detection system). No [...] - 11/24/2019 10:08:39Imaging Technologist: Carla JONES, [facility]-FWletter sent: BIRADS 1-2 Combo FU Letter Mammogram BI-RADS: 0 Incomplete: Additional Imaging Evaluation Needed Ultrasound BI-RADS: 2 Benign Notes Date/Time Note Provider Source 2023-05-21 14:16:11-00:00 Formatting of this note migh t be different from the original. [facility] Pt informed registration sta ff that she was leaving ED. Pt LWBS. Last seen in stable condition, &Ox4, No ataxia noted. 2023-05-21 14:05:43-00:00 Formatting of this note migh t be different from the original. [facility] Pt c/o headache, fever, farooq estion, fatigue that started yesterday. Reports being exposed to COVID+ mother. Reports taking two home tests that were negative. Was told to come to ER by PCP for COVID infusion therapy.
[2023-05-21] MEDS ORDERED: AZITHROMYCIN 250 MG TAB ONE (15:56)
[2023-05-21] MEDS ORDERED: ACETYLCYST 6,000 MG/30 ML VIAL ONE (15:56)
--- NOTE | 2023-05-21 16:04 | ER ---
Nurse's Notes [facility] Name: Jennie Muhammad Age: 47 yrs Sex: Female : 1975 Arrival Date: 05/21/2023 Time: 14:54 Bed 11 Private MD: Diagnosis: SARS-associated coronavirus as the cause of diseases classified elsewhere;Acute bronchitis, unspecified Presentation: 05/21 15:03 Chief complaint: Patient states: Fever, cough, congestion and GHOTRA since last night, Last jl7 took Tylenol at 1200 today. Coronavirus screen: Client presents with at least one sign or symptom that may indicate coronavirus-19. Ebola Screen: No symptoms or risks identified at this time. Initial Sepsis Screen: Does the patient meet any 2 criteria? No. Patient's initial sepsis screen is negative. Does the patient have a suspected source of infection? No. Patient's initial sepsis screen is negative. Risk Assessment: Do you want to hurt yourself or someone else? Patient reports no desire to harm self or others. Onset of symptoms was May 20, 2023. 15:03 Method Of Arrival: Ambulatory [facility] 15:03 Acuity: HOOD 4 jl7 Triage Assessment: 16:12 Headache History: The patient has had previous headaches and this one is similar to ap3 previous episodes. General: Appears ill. Pain: Pain Also complains of shortness of breath. 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 - Social history:: Smoking status: Patient denies any tobacco usage or history of. Screenin:10 [facility] ED Fall Risk Assessment (Adult) History of falling in the last 3 months, ap3 including since admission No falls in past 3 months (0 pts). Abuse screen: Denies threats or abuse. Nutritional screening: No deficits noted. Tuberculosis screening: No symptoms or risk factors identified. Assessment: 15:09 General: Appears ill, Behavior is calm, cooperative, appropriate for age. Pain: ap3 Complains of pain in head Pain began gradually. Neuro: Level of Consciousness is awake, alert, obeys commands, Oriented to person, place, time, situation. Cardiovascular: Patient's skin is warm and dry. Respiratory: Airway is patent Respiratory effort is even, unlabored, Respiratory pattern is regular, symmetrical. Vital Signs: 15:03 BP 128 / 82; Pulse 86; Resp 17; Temp 98; Pulse Ox 100% ; Weight 113.4 kg; Height 5 ft. jl7 10 in. ; Pain 6/10; 15:03 Body Mass Index 35.87 (113.40 kg, 177.8 cm) jl7 15:03 Pain Scale: Adult jl7 ED Course: 14:55 Patient arrived in ED. rg4 14:57 Radha Fernandez FNP-C is [facility]. snw 14:57 Vasyl Strong MD is Attending Physician. snw 15:01 Kelly Zuniga, STUART is Primary Nurse. ap3 15:05 Triage completed. jl7 15:10 Arm band placed on right wrist. ap3 15:10 Patient has correct armband on for positive identification. Bed in low position. Call ap3 light in reach. Pulse ox on. NIBP on. Door closed. Noise minimized. 15:22 COVID swab sent to lab. Flu and/or RSV swab sent to lab. ap3 15:50 Chest Pa And Lat (2 Views) XRAY In Process Unspecified. EDMS 16:12 Provided Education on: discharge education. ap3 16:12 No provider procedures requiring assistance completed. Patient did not have IV access ap3 during this emergency room visit. Administered Medications: 15:55 Drug: Acetylcysteine PO 600 mg Route: PO; ap3 16:13 Follow up: Response: No adverse reaction ap3 15:55 Drug: AZITHromycin PO 500 mg Route: PO; ap3 16:13 Follow up: Response: No adverse reaction ap3 Medication: 16:12 VIS not applicable for this client. ap3 Outcome: 16:03 Discharge ordered by MD. snw 16:12 Discharged to home ambulatory. ap3 16:12 Condition: good 16:12 Discharge instructions given to patient, Instructed on discharge instructions, follow up and referral plans. medication usage, Demonstrated understanding of instructions, follow-up care, medications, Prescriptions given X 4. 16:12 Patient left the ED. ap3 Signatures: Dispatcher [employer] EDRadha Tiwari, COLLETTE BARRAGANP-Bess Brown4 Brian Yañez RN RN jl7 Kelly Zuniga RN RN ap3
--- NOTE | 2023-05-21 16:04 | RAD REPORT ---
EXAM DESCRIPTION: RAD - Chest Pa And Lat (2 Views) - 05/21/2023 3:49 pm CLINICAL HISTORY: SOB COMPARISON: Chest Single View dated 12/18/2019 FINDINGS: Lines: None. Lungs: No evidence of edema or pneumonia. Pleural: No significant pleural effusions or pneumothorax. Cardiac: The heart size is within normal limits. Mediastinum: Within normal limits. Bones: No acute fractures. Other: None IMPRESSION: No acute cardiopulmonary disease.
--- NOTE | 2023-05-21 16:04 | EDPHYS ---
Physician Documentation [facility] Name: Jennie Muhammad Age: 47 yrs Sex: Female : 1975 Arrival Date: 05/21/2023 Time: 14:54 Bed 11 Private MD: UZIEL Physician Vasyl Strong HPI: 05/21 15:18 This 47 yrs old Female presents to ER via Ambulatory with complaints of Fever, snw Headache, Congestion. 15:18 The patient or guardian reports flu symptoms. Onset: The symptoms/episode snw began/occurred suddenly, yesterday. Associated signs and symptoms: Pertinent positives: rhinorrhea, sore throat, Headache, subjective fever. Severity of symptoms: At their worst the symptoms were moderate. It is unknown whether or not the patient has had similar symptoms in the past. The patient has not recently seen a physician. pt's Mother in [employer] with CoVid pneumonia. Pt has had multiple lung surgeries. 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 - Social history:: Smoking status: Patient denies any tobacco usage or history of. ROS: 15:17 Eyes: Negative for injury, pain, redness, and discharge. snw 15:17 Neck: Negative for injury, pain, and swelling, Cardiovascular: Negative for chest pain, palpitations, and edema. 15:17 Abdomen/GI: Negative for abdominal pain, nausea, vomiting, diarrhea, and constipation, Back: Negative for injury and pain, : Negative for injury, bleeding, discharge, and swelling, MS/Extremity: Negative for injury and deformity, Skin: Negative for injury, rash, and discoloration, Neuro: Negative for headache, weakness, numbness, tingling, and seizure, Psych: Negative for depression, anxiety, suicide ideation, homicidal ideation, and hallucinations. 15:17 Constitutional: Positive for body aches, fatigue, malaise. 15:17 ENT: Positive for sinus congestion, sore throat. 15:17 Respiratory: Positive for cough, shortness of breath. Exam: 15:16 Head/Face: Normocephalic, atraumatic. Eyes: Pupils equal round and reactive to light, snw extra-ocular motions intact. Lids and lashes normal. Conjunctiva and sclera are non-icteric and not injected. Cornea within normal limits. Periorbital areas with no swelling, redness, or edema. 15:16 Neck: Trachea midline, no thyromegaly or masses palpated, and no cervical lymphadenopathy. Supple, full range of motion without nuchal rigidity, or vertebral point tenderness. No Meningismus. Chest/axilla: Normal chest wall appearance and motion. Nontender with no deformity. No lesions are appreciated. Cardiovascular: Regular rate and rhythm with a normal S1 and S2. No gallops, murmurs, or rubs. Normal PMI, no JVD. No pulse deficits. Respiratory: Lungs have equal breath sounds bilaterally, clear to auscultation and percussion. No rales, rhonchi or wheezes noted. No increased work of breathing, no retractions or nasal flaring. Abdomen/GI: Soft, non-tender, with normal bowel sounds. No distension or tympany. No guarding or rebound. No evidence of tenderness throughout. Back: No spinal tenderness. No costovertebral tenderness. Full range of motion. Skin: Warm, dry with normal turgor. Normal color with no rashes, no lesions, and no evidence of cellulitis. MS/ Extremity: Pulses equal, no cyanosis. Neurovascular intact. Full, normal range of motion. Neuro: Awake and alert, GCS 15, oriented to person, place, time, and situation. Cranial nerves II-XII grossly intact. Motor strength 5/5 in all extremities. Sensory grossly intact. Cerebellar exam normal. Normal gait. Psych: Awake, alert, with orientation to person, place and time. Behavior, mood, and affect are within normal limits. 15:16 Constitutional: The patient appears alert, awake, anxious, uncomfortable. 15:16 ENT: Posterior pharynx: erythema, that is moderate. Vital Signs: 15:03 BP 128 / 82; Pulse 86; Resp 17; Temp 98; Pulse Ox 100% ; Weight 113.4 kg; Height 5 ft. jl7 10 in. ; Pain 6/10; 15:03 Body Mass Index 35.87 (113.40 kg, 177.8 cm) jl7 15:03 Pain Scale: Adult jl7 MDM: 15:03 Patient medically screened. gopal 15:19 Differential diagnosis: bronchitis, flu, URI, pneumonia. Data interpreted: Pulse snw oximetry: on room air is 100 %. Interpretation: normal. Data reviewed: vital signs, nurses notes, lab test result(s), radiologic studies. I considered the following discharge prescriptions or medication management in the emergency department Medications were administered in the Emergency Department. See MAR. Counseling: I had a detailed discussion with the patient and/or guardian regarding the historical points, exam findings, and any diagnostic results supporting the discharge/admit diagnosis, lab results, radiology results, the need for outpatient follow up, for definitive care, to return to the emergency department if symptoms worsen or persist or if there are any questions or concerns that arise at home. Special discussion: Based on the history and exam findings, there is no indication for further emergent testing or inpatient evaluation. I discussed with the patient/guardian the need to see the primary care provider for further evaluation of the symptoms. 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 16:05 Independent interpretation of the following test(s) in the Emergency Department X-Ray: snw My interpretation is neg. 05/21 15:16 Order name: SARS-COV-2 RT PCR; Complete Time: 15:53 snw 05/21 15:16 Order name: Flu; Complete Time: 15:53 snw 05/21 15:16 Order name: Chest Pa And Lat (2 Views) XRAY; Complete Time: 16:05 snw Administered Medications: 15:55 Drug: Acetylcysteine PO 600 mg Route: PO; ap3 16:13 Follow up: Response: No adverse reaction ap3 15:55 Drug: AZITHromycin PO 500 mg Route: PO; ap3 16:13 Follow up: Response: No adverse reaction ap3 Disposition Summary: 05/21/23 16:03 Discharge Ordered Location: Home snw Condition: Stable snw Diagnosis - SARS-associated coronavirus as the cause of diseases classified elsewhere snw - Acute bronchitis, unspecified snw Followup: snw - With: Emergency Department - When: As needed - Reason: Worsening of condition Followup: snw - With: Private Physician - When: 2 - 3 days - Reason: Recheck today's complaints, Continuance of care, Re-evaluation by your physician Discharge Instructions: - Discharge Summary Sheet snw - Aspirin and Your Heart snw - Rehydration, Adult snw - COVID-19 snw - 10 Things You Can Do to Manage Your COVID-19 Symptoms at Home - [facility] (04/10/2021) snw - COVID-19: Quarantine and Isolation - [facility] (12/23/2021) snw Forms: - Medication Reconciliation Form snw - Thank You Letter snw - Antibiotic Education snw - Prescription Opioid Use snw - Patient Portal Instructions snw - Leadership Thank You Letter snw Prescriptions: - acetylcysteine 600 mg Oral capsule - take 1 capsule by ORAL route 2 times per day; 90 capsule; Refills: 0, Product snw Selection Permitted - Zyrtec 10 mg Oral Tablet - take 1 tablet by ORAL route once daily As needed; 20 tablet; Refills: 0, snw Product Selection Permitted - Pepcid 20 mg Oral Tablet - take 1 tablet by ORAL route once daily; 20 tablet; Refills: 0, Product snw Selection Permitted - Zithromax 500 mg Oral Tablet - take 1 tablet by ORAL route once daily for 5 days; 5 tablet; Refills: 0, snw Product Selection Permitted Signatures: Dispatcher [employer] Vasyl Doan MD MD cha Waters, Shelly, SALES REPRESENTATIVE ADVERTISING-C SALES REPRESENTATIVE ADVERTISING-[employer] Brian Yañez, RN RN jl7 Kelly Zuniga RN RN ap3
[2023-05-21 16:26] VITALS: BP 128/82; TEMP 98; O2SAT 100
== END 2023-05-21 16:12 | disposition home or self-care (01) ==
LOC: ER 14:54
DX: U07.1 COVID-19 (principal); J20.9 Acute bronchitis, unspecified; E11.9 Type 2 diabetes mellitus without complications; Z79.4 Long term (current) use of insulin; Z88.1 Allergy status to other antibiotic agents; Z88.8 Allergy status to other drugs, medicaments and biological substances
CPT/HCPCS: 87635; 87804 ×2; 71046; 99284; J7608